=== PATIENT | male | born 1955 | race Caucasian/White ===

== ENCOUNTER → 2018-02-01 13:13 | Outpatient (CLI) | payer OTHER, SELFPAY ==
[2018-02-01 15:18] LABS: AST(SGOT) 24 U/L (15-37); Alanine Aminotransfer ALT/SGPT 29 U/L (16-61); Albumin, Serum 3.8 g/dL (3.2-5.0); Alkaline Phosphatase 105 U/L (45-117); Anion Gap 4 (5-15); BUN 14 mg/dL (7-18); BUN/Creat Ratio 13.2 RATIO (10-20); Chloride 105 mmol/L (98-107); Creatinine, Serum 1.06 mg/dL (0.70-1.30); EST Glomerular Filtration Rate 75 mL/min (>60); Est Glom Filt Rate - Afr Amer 90 mL/min (>60); Free T3 2.6 pg/mL (2.18-3.98); Glucose 72 mg/dL (74-106); Potassium 3.9 mmol/L (3.5-5.1); Protein, Total 7.8 g/dL (6.4-8.2); Sodium Level 139 mmol/L (136-145); Thyroid Stim Hormone (TSH) 0.48 uIU/mL (0.358-3.74)
[2018-02-03 11:30] LABS: Anti-Thyroglobulin AB < 1.0 IU/mL (0.0-0.9); Thyroglobulin, Serum Qt. 5.1 ng/mL (1.4-29.2)
== END ==
PROVIDERS: Family Provider Family Medicine; PCP Family Medicine; Visit Provider Nurse Practitioner
DX: C73 Malignant neoplasm of thyroid gland (principal); I25.10 Atherosclerotic heart disease of native coronary artery without angina pectoris
CPT/HCPCS: 36415; 80053; 84432; 84439; 84443; 84481; 86800

== ENCOUNTER → 2018-02-03 14:18 | Outpatient (CLI) | payer OTHER, SELFPAY ==
--- NOTE | 2018-02-03 14:20 | US_ITS ---
STUDY: THYROID ULTRASOUND REASON FOR EXAM: Male, 62 years old. Thyroid disorder history of nodules. TECHNIQUE: Ultrasound evaluation of the thyroid was performed with real-time and static galvez-scale imaging. COMPARISON: None. FINDINGS: RIGHT LOBE: The right lobe of the thyroid gland measures 3.5 x 1.4 x 1.3 cm. There is a homogeneous echotexture. There is a 7.1 x 5.6 x 4.2 mm slightly ill-defined hyperechoic solid nodule within the lower pole of the right lobe. LEFT LOBE: The patient status post left thyroid lobectomy. ISTHMUS: The isthmus measures 3 mm . No pathologically enlarged lymph nodes are visualized. US/Thyroid IMPRESSION: 7.1 mm solid nodule within the right lobe of the thyroid gland. Electronically Signed: Anjali Gardner MD at 23:57 EDT Tel , Service support ,
== END ==
PROVIDERS: Family Provider Family Medicine; PCP Family Medicine; Visit Provider Nurse Practitioner
DX: Z85.850 Personal history of malignant neoplasm of thyroid (principal)
CPT/HCPCS: 76536

== ENCOUNTER → 2018-11-25 07:30 | Outpatient (CLI) | payer OTHER, SELFPAY ==
[2018-01-19 09:47] VITALS: BMI 30.3
[2018-11-25 08:16] LABS: ALB/GLOB Ratio 0.9 RATIO (0.9-2.4); AST(SGOT) 20 U/L (15-37); Alanine Aminotransfer ALT/SGPT 27 U/L (16-61); Albumin, Serum 3.6 g/dL (3.2-5.0); Alkaline Phosphatase 107 U/L (45-117); Anion Gap 6 (5-15); BUN 15 mg/dL (7-18); BUN/Creat Ratio 12.8 RATIO (10-20); Calcium,Total 8.8 mg/dL (8.5-10.1); Chloride 105 mmol/L (98-107); Cholesterol 145 mg/dL (200); Creatinine, Serum 1.17 mg/dL (0.70-1.30); EST Glomerular Filtration Rate 66 mL/min (>60); Est Glom Filt Rate - Afr Amer 80 mL/min (>60); Globulin 3.9 g/dL (2.2-4.2); Glucose 108 mg/dL (74-106); High Density Lipoprotein 47 mg/dL; Potassium 4.4 mmol/L (3.5-5.1); Protein, Total 7.5 g/dL (6.4-8.2); Sodium Level 139 mmol/L (136-145); Triglycerides 95 mg/dL; Very Low Density Lipoprotein 19 mg/dL (5-40)
== END ==
PROVIDERS: Family Provider Family Medicine; PCP Family Medicine; Referring Provider Internal Medicine Interventional Cardiology; Visit Provider Internal Medicine Interventional Cardiology
DX: I25.10 Atherosclerotic heart disease of native coronary artery without angina pectoris (principal)
CPT/HCPCS: 36415; 80053; 80061

== ENCOUNTER → 2019-11-24 07:59 | Outpatient (CLI) | payer MEDICARE, SELFPAY ==
[2019-11-24 08:34] LABS: ALB/GLOB Ratio 0.8 RATIO (0.9-2.4); AST(SGOT) 22 U/L (15-37); Alanine Aminotransfer ALT/SGPT 33 U/L (16-61); Albumin, Serum 3.5 g/dL (3.2-5.0); Alkaline Phosphatase 117 U/L (45-117); Anion Gap 4 (5-15); BUN 13 mg/dL (7-18); BUN/Creat Ratio 11.8 RATIO (10-20); Calcium,Total 9.5 mg/dL (8.5-10.1); Chloride 108 mmol/L (98-107); Cholesterol 149 mg/dL (200); EST Glomerular Filtration Rate 71 mL/min (>60); Est Glom Filt Rate - Afr Amer 86 mL/min (>60); Globulin 4.2 g/dL (2.2-4.2); Glucose 110 mg/dL (74-106); High Density Lipoprotein 49 mg/dL; Potassium 4.2 mmol/L (3.5-5.1); Protein, Total 7.7 g/dL (6.4-8.2); Sodium Level 142 mmol/L (136-145); Triglycerides 97 mg/dL; Very Low Density Lipoprotein 19 mg/dL (5-40)
== END ==
PROVIDERS: Family Provider Family Medicine; PCP Family Medicine; Referring Provider Internal Medicine Interventional Cardiology; Visit Provider Internal Medicine Interventional Cardiology
DX: I25.10 Atherosclerotic heart disease of native coronary artery without angina pectoris (principal)
CPT/HCPCS: 36415; 80053; 80061

== ENCOUNTER 2024-03-25 10:30 | Emergency (ER) | payer MEDICARE, SELFPAY ==
[2024-03-25 10:31] VITALS: BP 136/76; PULSE 76; RESP 16; TEMP 36.2; O2SAT 97; BMI 31.0
[2024-03-25 10:58] VITALS: BP 107/69; PULSE 70; RESP 22; TEMP 36.2; O2SAT 94; O2SAT 96
--- NOTE | 2024-03-25 10:58 | CT_ITS ---
STUDY: CTA HEAD AND NECK WITH CONTRAST REASON FOR EXAM: Male, 68 years old. transient L facial paresthesias RADIATION DOSAGE (If Supplied By Facility): CTDIvol = ( 28.10 ) mGy, DLP = ( 1685.49 ) mGycm TECHNIQUE: CT angiography was performed with a multi-detector CT scanner. Data acquisition was obtained from the skull base through the vertex following intravenous administration of IV 100mL [id number]-370. MIP images were reconstructed from the axial data set. Post-processing of the angiographic images was performed, with multiplanar reformation and 3D reconstruction. Individualized dose optimization techniques were used for this CT. COMPARISON: No relevant priors. FINDINGS: Normal bilateral petrous carotid arteries. Normal right cavernous carotid artery with a normal supraclinoid bifurcation. Normal left cavernous carotid artery with a normal supraclinoid bifurcation. Normal right A1 segments of the anterior cerebral artery. Normal left A1 segments of the anterior cerebral artery. Normal intact anterior communicating artery (ACOM). Normal bilateral A2 segments of the anterior cerebral arteries. Normal right M1 and M2 segments of the middle cerebral arteries, with a normal M1 bifurcation. Normal left M1 and M2 segments of the middle cerebral arteries, with a normal M1 bifurcation. Normal right posterior communicating artery (PCOM). Normal left posterior communicating artery (PCOM). Normal bilateral vertebral arteries. Normal basilar artery with a normal basilar bifurcation. The visualized bilateral superior cerebellar (SCA) arteries are normal. Normal bilateral P1, P2 and visualized P3 segments of the posterior cerebral arteries. There is no demonstrated aneurysm of the e[place] of [place]. Mild degree of cerebral atrophy. Mucosal thickening of the right maxillary sinus. There is a 1.6 cm x 1.1 cm noncalcified nodule in the medial aspect of the right upper lobe. There is a 1.1 cm x 1 cm nodule in the anterior lateral aspect of the left upper lobe. Further investigation recommended. AORTIC ARCH: There is atherosclerotic calcific plaque formation of the aortic arch and great vessels arising from the aortic arch, without a hemodynamically significant stenosis. There is a bovine origin of the great vessels with a common origin of the brachiocephalic and left common carotid artery. Normal origin of the left subclavian artery. RIGHT CAROTID ARTERIES: Normal right common carotid artery (CCA). Normal right common carotid bulb. There is mild atherosclerotic plaque formation of the origin of the right internal carotid artery with less than 50% cross sectional diameter stenosis. Normal visualized cervical portion of the right internal carotid artery. Normal origin of the right external carotid artery (ECA). LEFT CAROTID ARTERIES: Normal left common carotid artery (CCA). Normal left common carotid bulb. There is mild atherosclerotic plaque formation of the origin of the left internal carotid artery with less than 50% cross sectional diameter stenosis. Normal visualized cervical portion of the left internal carotid artery. Normal origin of the left external carotid artery (ECA). VERTEBRAL ARTERIES: There is enhancement within the bilateral vertebral arteries with a small right vertebral artery, and a dominant left vertebral artery. CT/CTA Head AND Neck W/ Contrast IMPRESSION: Mild degree of calcific plaque at the origin of the left and right internal carotid arteries. Noncalcified pulmonary nodules. CT scan of the thorax recommended for further evaluation. There is a 7.9 mm x 1 10 mm enhancing nodule in the superior aspect of the posterior right parietal occipital lobe. A metastatic deposit should be ruled out. Surrounding edema is seen. Electronically Signed: Gerry Elam MD at 13:08 EDT ,
--- NOTE | 2024-03-25 11:01 | ED.VIS.STROK ---
HPI History of Present Illness Chief Complaint: Numb/Ting Informant: patient and spouse/S.O. Narrative Narrative: 68-year-old male presents with numbness that occurred suddenly to the left side of his face including his forehead lasted about a minute and resolved. This just happened this morning. He feels fine now. Yesterday he had a similar episode but he had sharp pain in the left side of his head at the same time, that did not occur this morning. He denies any other acute symptoms including weakness, trouble speaking, trouble understanding others, syncope, changes in his vision, or any extremity neurologic symptoms. He states this morning he was standing in the checkout line at the grocery when it occurred and it was the same as it did yesterday with regards to the numbness. He recently had prostatectomy due to prostate cancer, he had lymph node sampling of the area that were all negative so it is thought that his cancer was contained to the prostate. He has a history of stents in his heart, he is no longer on Brilinta just a baby aspirin daily for antiplatelet therapy no anticoagulants. No other medication changes recently. States his blood pressure is usually very well-controlled. Denies any recent illness. [facility] Medical History (Updated 03/25/24 @ 15:[address] Dandre Lyon MD) Heart attack Seasonal allergies Thyroid cancer Home Medications aspirin 81 mg tablet,delayed release (Adult Aspirin Regimen) PO 01/06/18 [History Last Taken Unknown] atorvastatin 80 mg tablet 80 mg PO QDAY 01/06/18 [History Last Taken Unknown] carvedilol 3.125 mg tablet 3.125 mg PO BID 01/06/18 [History Last Taken Unknown] cetirizine 10 mg capsule (Zyrtec) 10 mg PO QDAY 01/06/18 [History Last Taken Unknown] cholecalciferol (vitamin D3) 125 mcg (5,000 unit) capsule 5,000 unit PO QDAY 01/06/18 [History Last Taken Unknown] lisinopril 5 mg tablet (Prinivil) 5 mg PO QDAY 01/06/18 [History Last Taken Unknown] levothyroxine 137 mcg tablet 137 mcg PO DAILY 03/25/24 [History Last Taken Unknown] metformin 500 mg tablet,extended release 24 hr 1,000 mg PO BID 03/25/24 [History Last Taken Unknown] Allergy/AdvReac Type Severity Reaction Status Date / Time No Known Allergies Allergy Verified 01/19/18 09:45 Surgical History H/O heart artery stent H/O partial thyroidectomy Social History Smoking Status: Former smoker quit date: 11/16/15 second hand exposure: No alcohol intake: never substance use type: does not use ROS ROS ED Constitutional Constitutional ED: Denies chills or fever(s) Eyes Eyes: Denies blurry vision, change in vision or diplopia ENT ENT ED: Denies rhinorrhea or sore throat Cardiovascular Cardiovascular: Denies chest pain, dizziness, lightheadedness, palpitations or syncope Respiratory/Chest Respiratory/Chest: Denies cough or dyspnea Gastrointestinal Gastrointestinal: Denies abdominal pain, diarrhea, nausea or vomiting Genitourinary Genitourinary ED: Denies dysuria or hematuria Musculoskeletal Musculoskeletal: Denies back pain or neck pain Integumentary Denies abscess or rash Neurologic Neurologic: Reports as per HPI and paresthesias; Denies headache(s) or weakness Psychiatric Psychiatric: Denies anxiety or suicidal thoughts EXAM Physical Exam Const Vital Signs: 03/25/24 10:31 03/25/24 10:58 03/25/24 10:58 Temperature 97.2 F L 97.2 F L Temperature Source Temporal Oral Pulse Rate 76 70 Respiratory Rate 16 22 H Blood Pressure 136/76 H 107/69 Blood Pressure Mean 96 81 Pulse Ox 97 94 96 Oxygen Delivery Method Room Air Room Air Room Air 03/25/24 12:30 03/25/24 14:00 Temperature 98.1 F Temperature Source Oral Pulse Rate 81 71 Respiratory Rate 14 18 Blood Pressure 123/70 H 130/78 H Blood Pressure Mean 87 95 Pulse Ox 95 94 Oxygen Delivery Method Room Air Room Air Positive well nourished and well developed General Appearance ED: well developed and NAD HEENT Reports moist mucous membranes normocephalic and atraumatic Eyes PERRL and EOMs intact bilaterally Neck full ROM and supple Resp normal respiratory effort and clear to auscultation bilaterally Cardio regular rate, regular rhythm and no murmurs Rate: Negative for tachycardic GI non-tender and non-distended Auscultation: normoactive bowel sounds Palpation: soft Back/Spine Back/Spine Narrative: Normal inspection no rash General Back: other FROM Extremity normal to inspection General Extremety ED: Negative for edema, pulses abnormal or tenderness General Extremity: Negative for edema or pulses abnormal Neuro oriented x3, CN's II-XII intact bilaterally and no sensory deficits noted Neuro Narrative: Normal speech no aphasia. No Norris-inattention. [place] Coma Scale: document GCS findings Spontaneous Obeys Commands Oriented 15 Sensorium / Orientation: awake and alert Motor Exam: strength 5/5 throughout Psych mental status grossly normal Skin no rashes or lesions noted and no wounds NIHSS NIHSS Initial: 1a Level of Consciousness: 0 1b LOC Questions (Score 2 if aphasic/stupor): 0 1c LOC Commands (Only score 1st attempt): 0 2 Best Gaze (If aphasic, use reflexive mvmts.): 0 3 Visual: 0 4 Facial Palsy: 0 5 Motor Arm Right (UN = amputation/fusion): 0 5 Motor Arm Left: 0 6 Motor Leg Right: 0 6 Motor Leg Left: 0 7 Limb ataxia (Only + if out of proportion): 0 8 Sensory (Aphasia/stupor=0 or 1, coma=2): 0 9 Best Language: 0 10 Dysarthria (mute, coma=2, intubated=UN): 0 11 Extinction and Inattention (only scored if +): 0 Total Score: 0 MDM MDM MDM Narrative Medical decision making narrative: Broad differential here, which does include TIA but thought to be less likely a vascular event given the distribution of the symptoms and the lack of any other neurologic symptoms. Also includes migraine headache, nonepileptic seizure activity, metabolic disorders, and/or could be an early sign of Davis's palsy although he does not have any objective signs of weakness in the left face; in addition, possible mass/metastasis given his recent cancer diagnosis. Given all of this obtained labs, and EKG, this showed no acute metabolic disturbance and he is not in A-fib, showing sinus rhythm. Obtain CT/CTA head and neck. I reviewed the images and the report which I agree with, it is negative for any acute vascular infarct but does show suspicion of a mass that may be a metastasis in his right posterior parietal occipital lobe, where it could cause some of these left-sided facial symptoms. I sat discussed with him and his significant other at length about my concerns about newly discovered brain tumor with vasogenic edema that was probably causing intermittent seizure activity giving him his symptoms, and the fact that the cranial vault is a closed area that is particularly sensitive to masses with vasogenic edema with mass effect such as this. Generally, admission is warranted for this, and given that we do not have neurosurgery here I recommend transfer to tertiary care center. He had his prostatectomy at [facility], he was amenable to going there. I discussed with the transfer center, internal medicine accepted the patient without wanting to discuss with me, and upon obtaining acceptance, staff let the patient know that he was going to be transferred and he now refuses. He wants to go home. We discussed the risks of recurrent seizures, or worse, loss of consciousness and or due to brain herniation although that is not likely within the next couple days. He states he wants to wait the weekend and make an appointment to go see someone. He understands that he may need to see multiple specialists and it may be drawn out and cause delays in order to do it this way. It is not worth seeing oncology generally until they know what is going on with regards of this mass, I think he needs to see neurosurgery first. Also, I told him that being a type II diabetic on metformin getting steroids generally we can manage the collateral damage of hyperglycemia while he is in the hospital without any difficulty but he does not even have a glucose meter at home to check his sugar at home so he refuses Decadron despite the benefits of limiting the vasogenic edema, and he also refuses seizure medications. He wants to leave AGAINST MEDICAL ADVICE understands all of these risks, his significant other was present for all of this discussion. Given this I discussed with neurosurgery on-call at [facility] Dr. Braden, he understands and recommends we refer the patient to his colleague Dr. Blackburn, he was given this information. Lab Data Attestation: I reviewed the patient's lab results. Labs: Laboratory Results - last 24 hr 03/25/24 03/25/24 03/25/24 11:10 11:10 11:55 WBC Cancelled 7.7 Corrected WBC Cancelled RBC Cancelled 4.05 L Hgb Cancelled 11.4 L Hct Cancelled 36.7 L MCV Cancelled 90.6 MCH Cancelled 28.1 MCHC Cancelled 31.1 L RDW Std Deviation Cancelled 44.3 H RDW Coeff of Suzanna Cancelled 13.4 Plt Count Cancelled 223 MPV Cancelled 10.8 Immature Gran % (Auto) Cancelled 0.300 Neut % (Auto) Cancelled 61.7 Lymph % (Auto) Cancelled 23.9 [place] % (Auto) Cancelled 7.8 Eos % (Auto) Cancelled 4.7 Baso % (Auto) Cancelled 1.6 H Absolute Neuts (auto) Cancelled 4.7 Absolute Lymphs (auto) Cancelled 1.83 Total Counted Cancelled Neutrophils % (Manual) Cancelled Band Neutrophils % Cancelled Lymphocytes % (Manual) Cancelled Monocytes % (Manual) Cancelled Eosinophils % (Manual) Cancelled Basophils % (Manual) Cancelled Metamyelocytes % Cancelled Myelocytes % Cancelled Promyelocytes % Cancelled Blast Cells % Cancelled Plasma Cell % (Manual) Cancelled Other Cells % Cancelled Nucleated RBC % Cancelled 0 Nucleated RBCs/100 WBC Cancelled Differential Comment Cancelled Diff Path Review Cancelled Hypersegmented Neuts Cancelled Atypical Lymphocytes Cancelled Reactive Lymphocytes Cancelled Smudge Cells Cancelled Toxic Granulation Cancelled Toxic Vacuolation Cancelled Dohle Bodies Cancelled Nilson Rods Cancelled Platelet Estimate Cancelled Plt Morphology Comment Cancelled RBC Morphology Cancelled Cancelled Polychromasia Cancelled Hypochromasia Cancelled Basophilic Stippling Cancelled Anisocytosis Cancelled Microcytosis Cancelled Macrocytosis Cancelled Spherocytes Cancelled Sickle Cells Cancelled Target Cells Cancelled Tear Drop Cells Cancelled Ovalocytes Cancelled Stomatocytes Cancelled Farmer-[place] Bodies Cancelled Burchard Cells Cancelled Bite Cells Cancelled Crenated Cell Cancelled Acanthocytes (Spur) Cancelled Rouleaux Cancelled Schistocytes Cancelled PT 14.8 INR 1.2 APTT 30.8 Sodium 140 Potassium 4.4 Chloride 108 H Carbon Dioxide 31.0 Anion Gap 1 L BUN 21 H Creatinine 1.28 Estim Creat Clear Calc 74.73 Est GFR (MDRD) Af Amer 71 Est GFR (MDRD) Non-Af 59 L BUN/Creatinine Ratio 16.4 Glucose 104 Calcium 9.2 Troponin I High Sens 6 Radiography Diagnostic Testing: Clinical Impression(s) from Imaging Studies Head/Neck CTA 03/25/24 10:58 IMPRESSION: Mild degree of calcific plaque at the origin of the left and right internal carotid arteries. Noncalcified pulmonary nodules. CT scan of the thorax recommended for further evaluation. There is a 7.9 mm x 1 10 mm enhancing nodule in the superior aspect of the posterior right parietal occipital lobe. A metastatic deposit should be ruled out. Surrounding edema is seen. Electronically Signed: Gerry Elam MD at 13:08 EDT Reading Location ID and State: [facility] / [place] , Service support , Rhythm Strip Rhythm Strip: Sinus Rhythm Rate: 70 Ectopy: PVC(s) (rare) EKG Initial EKG: Attestation: I personally reviewed and interpreted this EKG as follows: Interpretation: Sinus Rhythm and No Acute Injury Pattern Prior EKG tracings: available for review Prior: Unchanged Management Discussion w/another healthcare provider: [employer] (Neurosurgery Dr. Braden) Stroke Documentation Questions Stroke Team Activated: No (sx resolved) IV Thrombolytic Administered: No (sx resolved) Discharge Plan Triage Chief Complaint: Numb/Ting ED Provider: Dandre Lyon Dx/Rx/DC Orders Clinical Impression: History of prostate cancer, Neoplasm of brain causing mass effect on adjacent structures Instructions: ED Brain Tumor Prescriptions: No Action aspirin [Adult Aspirin Regimen] 81 mg tablet,delayed release (DR/EC) PO carvedilol 3.125 mg tablet 3.125 mg PO BID atorvastatin 80 mg tablet 80 mg PO QDAY lisinopril [Prinivil] 5 mg tablet 5 mg PO QDAY cetirizine [Zyrtec] 10 mg capsule 10 mg PO QDAY cholecalciferol (vitamin D3) 5,000 unit capsule 5,000 unit PO QDAY levothyroxine 137 mcg tablet 137 mcg PO DAILY metformin 500 mg tablet extended release 24 hr 1,000 mg PO BID Primary Care Provider: Ap Hall Activity Restrictions/Additional Instructions: Call and make an appointment with Dr. Azeem Blackburn MD, Neurosurgery Address:?[address], [place] [address] Phone:? Disposition Disposition: Against Medical Advice Discharge Date/Time: 03/25/24 15:13
[2024-03-25] MEDS: 0.9% Normal Saline (500mL Bag) 500 ML 999 ML IV (11:39)
[2024-03-25 11:44] LABS: Anion Gap 1 (5-15); BUN 21 mg/dL (7-18); BUN/Creat Ratio 16.4 RATIO (10-20); Calcium,Total 9.2 mg/dL (8.5-10.1); Chloride 108 mmol/L (98-107); Creatinine, Serum 1.28 mg/dL (0.70-1.30); EST Glomerular Filtration Rate 59 mL/min (>60); Est Glom Filt Rate - Afr Amer 71 mL/min (>60); Estimated Creatinine Clearance 74.73 ml/min; Glucose 104 mg/dL (74-106); International Normalized Ratio 1.2; Partial Thromboplast Time 30.8 Seconds (24.1-36.2); Potassium 4.4 mmol/L (3.5-5.1); Prothrombin Time (Protime)PT. 14.8 SECONDS (11.7-14.9); Sodium Level 140 mmol/L (136-145); Troponin-I HS 6 pg/mL (3.0-78.0)
[2024-03-25 12:14] LABS: Absolute Lymphocyte Count 1.83 X10^3/uL (0.83-4.51); Absolute Neutrophil Count 4.7 X10^3/uL (2.0-7.7); Basophil# 0.12 X10^3/uL; Basophil% 1.6 % (0-1); Eosinophil# 0.36 X10^3/uL; Eosinophils% 4.7 % (0-5); Hematocrit 36.7 % (40-54); Hemoglobin 11.4 g/dL (13.0-16.5); Lymphocyte # 1.83 X10^3/ul (0.83-4.51); Lymphocyte % 23.9 % (19-41); Mean Corp Hgb Conc 31.1 g/dL (32-36); Mean Corpuscular Hgb 28.1 pg (27.0-32.0); Mean Corpuscular Volume 90.6 fL (80-94); Mean Platelet Vol. 10.8 fl (6.2-12.0); Monocyte% 7.8 % (0-10); NRBC Flagged by Analyzer 0 % (0-5); Neutrophil # 4.74 X10^3/uL (2.7-7.7); Neutrophil % 61.7 % (47-70); Platelet Count 223 K/mm3 (150-450); RBC Distribution Width CV 13.4 % (11.6-14.6); RBC Distribution Width SD 44.3 fl (35.1-43.9); Red Blood Count 4.05 M/mm3 (4.6-6.2); White Blood Count 7.7 K/mm3 (4.4-11.0)
[2024-03-25 12:30] VITALS: BP 123/70; PULSE 81; RESP 14; TEMP 36.7; O2SAT 95
[2024-03-25 14:00] VITALS: BP 130/78; PULSE 71; RESP 18; O2SAT 94
--- NOTE | 2024-03-25 14:43 | ED.RN ---
PT ACCEPTED AT [facility] . WAIT BED.
[2024-03-25 15:11] VITALS: BP 138/71; PULSE 72; RESP 15; TEMP 36.8; O2SAT 98
== END 2024-03-25 15:13 | disposition left against medical advice (07) ==
PROVIDERS: Emergency Provider Emergency Medicine; PCP Family Medicine; Visit Provider Emergency Medicine
DX: C79.31 Secondary malignant neoplasm of brain (principal); Z87.891 Personal history of nicotine dependence; Z85.46 Personal history of malignant neoplasm of prostate; R22.0 Localized swelling, mass and lump, head; Z90.79 Acquired absence of other genital organ(s); Z79.82 Long term (current) use of aspirin; Z95.5 Presence of coronary angioplasty implant and graft; I25.2 Old myocardial infarction; Z85.850 Personal history of malignant neoplasm of thyroid
CPT/HCPCS: 36415; 70496; 70498; 80048; 84484; 85025; 85610; 85730; 93005; 96360; 99284; J7040; Q9967; A4216